=== PATIENT | male | born 1970 ===

== ENCOUNTER 2019-07-04 13:56 | Outpatient (REF) | payer MEDICAID, SELFPAY ==
[2019-07-04 22:10] LABS: HCT 46.4 % (40.0-50.0); HGB 15.9 g/dL (13.5-17.5); Mean Corp. HGB Concentration 34.3 g/dL (32.0-36.0); Mean Corpuscular Hemoglobin 28.6 pg (27.0-33.0); Mean Corpuscular Volume 83.5 fL (80-95); Mean Platelet Volume 10.3 fL (8.0-11.0); Platelet Count 312 x1000/uL (130-400); RBC 5.56 m/cumm (4.50-6.00); RBC Distribution Width 12.6 % (11.8-14.1); White Blood Cell Count 7.46 k/cumm (4.4-10.8)
[2019-07-04 22:28] LABS: Anion Gap 9.5 mmol/L (3-11); BUN 11 mg/dL (7-18); CO2 28.5 mmol/L (21.0-32.0); CREATININE 0.62 mg/dL (0.70-1.30); Calcium 9.3 mg/dL (8.5-10.1); Calculated LDL 104 mg/dL; Chloride 104 mmol/L (98-107); Cholesterol 208 mg/dL (<200); Glucose 111 mg/dL (74-106); HDL Cholesterol 94 mg/dL (40-60); Potassium 4.1 mmol/L (3.5-5.1); Sodium 142 mmol/L (136-145); Triglyceride 52 mg/dL (<150)
== END 2019-07-04 14:16 ==
LOC: NCHCN 13:56
PROVIDERS: PCP Specialist/Technologist Athletic Trainer; Visit Provider Specialist/Technologist Athletic Trainer
DX: Z13.0 Encounter for screening for diseases of the blood and blood-forming organs and certain disorders involving the immune mechanism (principal); Z13.220 Encounter for screening for lipoid disorders; Z13.228 Encounter for screening for other metabolic disorders; Z00.00 Encounter for general adult medical examination without abnormal findings
CPT/HCPCS: 80048; 80061; 85027